=== PATIENT | male | born 1990 | race Caucasian/White ===

== ENCOUNTER 2018-07-09 16:20 | Inpatient (IN) | payer OTHER ==
[2018-07-09 18:03] VITALS: BMI 27.3
--- NOTE | 2018-07-09 21:18 | HP ---
Admission ROS [facility] Chief Complaint: SEEKING REHAB SERVICES Allergies/Adverse Reactions: Allergies Allergy/AdvReac Type Severity Reaction Status Date / Time No Known Allergies Allergy Verified 07/09/18 21:13 History of Present Illness: 27 Y.O. MAN AN EXTENSIVE HISTORY OF PCP, COCAINE AND KETAMINE DEPENDENCE IS HERE SEEKING HIS FIRST ADMISSION TO REHAB. HE DOES NOT HAVE A SIGNIFICANT PERIOD OF ILLICIT DRUG ABSTINENCE. Exam Limitations: No Limitations - Ebola screening Have you traveled outside of the country in the last 21 days: No Have you been sick,other than usual withdrawal symptoms: No - Review of Systems Constitutional: Changes in sleep EENT: reports: Nose Congestion Respiratory: reports: Shortness of Breath Cardiac: reports: No Symptoms Reported GI: reports: No Symptoms Reported : reports: No Symptoms Reported Musculoskeletal: reports: Back Pain Integumentary: reports: No Symptoms Reported Neuro: reports: No Symptoms reported Endocrine: reports: No Symptoms Reported Hematology: reports: No Symptoms Reported Psychiatric: reports: Orientated x3 Other Systems: Reviewed and Negative Patient History - Patient Medical History Hx Anemia: No Hx Asthma: No Hx Chronic Obstructive Pulmonary Disease (COPD): No Hx Cancer: No Hx Cardiac Disorders: No Hx Congestive Heart Failure: No Hx Hypertension: No Hx Hypercholesterolemia: No Hx Pacemaker: No HX Cerebrovascular Accident: No Hx Seizures: No Hx Dementia: No Hx Diabetes: No Hx Gastrointestinal Disorders: No Hx Liver Disease: No Hx Genitourinary Disorders: No Hx Sexually Transmitted Disorders: No Hx Renal Disease (ESRD): No Hx Thyroid Disease: No Hx Human Immunodeficiency Virus (HIV): No Hx Hepatitis C: No Hx Depression: No Hx Suicide Attempt: No Hx Bipolar Disorder: No Hx Schizophrenia: No - Patient Surgical History Past Surgical History: Yes Hx Appendectomy: Yes (2002) Anesthesia Reaction: No - PPD History Previous Implant?: Yes Documented Results: Negative w/o proof PPD to be Administered?: Yes - Reproductive History Patient is a Female of Child Bearing Age (11 -55 yrs old): No - Smoking Cessation Smoking history: Never smoked Initiated information on smoking cessation: No - Substance & Tx. History Hx Alcohol Use: No Hx Substance Use: Yes Substance Use Type: Cocaine Hx Substance Use Treatment: No - Substances Abused Cocaine Route: Inhalation Frequency: 3-6 times per week Amount used: $200 WEEK Age of first use: 17 Date of Last Use: 08/28/18 PCP Route: Smoking Frequency: 3-6 times per week Amount used: $150 WEEK Age of first use: 23 Date of Last Use: 07/07/18 Ketamine Route: Inhalation Frequency: 3-6 times per week Amount used: $340 Age of first use: 23 Date of Last Use: 07/08/18 Family Disease History - Family Disease History Family Disease History: Respiratory: Mother (ASTHMA ) Admission Physical Exam [facility] - Vital Signs Vital Signs: Vital Signs - 24 hr 07/09/18 17:55 Pulse Rate 73 Respiratory 16 Rate Blood Pressure 111/59 - Physical General Appearance: Yes: No Apparent Distress, Nourished, Appropriately Dressed HEENTM: Yes: Within Normal Limits, Hearing grossly Normal, Normal ENT Inspection , Normocephalic Respiratory: Yes: Chest Non-Tender Neck: Yes: No masses,lesions,Nodules, Trachea in good position Breast: Yes: Breast Exam Deferred Cardiology: Yes: Regular Rhythm, Regular Rate Abdominal: Yes: Normal Bowel Sounds, Non Tender, Flat Genitourinary: Yes: Other (NO COMPLAINTS REPORT) Back: Yes: Normal Inspection Musculoskeletal: Yes: full range of Motion, Gait Steady, Pelvis Stable Extremities: Yes: Normal Capillary Refill, Normal Inspection, Normal Range of Motion Neurological: Yes: Fully Oriented, Alert, Normal Mood/Affect, Normal Response Integumentary: Yes: Normal Color, Dry, Warm Lymphatic: Yes: Within Normal Limits - Diagnostic (1) Cocaine dependence Current Visit: Yes Status: Chronic (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 (3) Ketamine dependence Current Visit: Yes Status: Chronic Cleared for Admission [facility] - Detox or Rehab [facility] Level of Care: Observation Bed Detox Regimen/Protocol: Not Applicable Claeared for Rehab Admission: Yes [facility] Breath Alcohol Content Breath Alcohol Content: 0 Urine Drug Screen - Results Drug Screen Negative: No Urine Drug Screen Results: THC-Marijuana, JEAN-PIERRE-Cocaine, PCP-Phencyclidine Inpatient Rehab Admission - Initial Determination Are CD services needed?: Yes Free of communicable disease: Yes Not in need of hospitalization: Yes - Rehab Admission Criteria Previous failed treatment: Yes Poor recovery environment: Yes Comorbidities: Yes Lacks judgement: Yes Patient is meeting Inpatient Rehab admission criteria:: Yes
[2018-07-09] MEDS ORDERED: LOPERAMIDE HCL 2 MG CAPSULE PO PRN (21:20)
[2018-07-09] MEDS ORDERED: MAG HYDROX/AL HYDROX/SIMETH 30 ML UNIT-DOSE CUP PO PRN (21:20)
[2018-07-09] MEDS ORDERED: P-EPHED 60MG/TRIPROLIDI 2.5MG TABLET PO PRN (21:20)
[2018-07-09] MEDS ORDERED: MENTHOL/PHENOL 1 EACH UD MM PRN (21:20)
[2018-07-09] MEDS ORDERED: hydrOXYzine PAMOATE 50 MG CAPSULE (FP) PO PRN (21:20)
[2018-07-09] MEDS ORDERED: guaiFENesin/D-METHORPHAN HB 10 ML UNIT-DOSE CUPS PO PRN (21:20)
[2018-07-09] MEDS ORDERED: MAGNESIUM CITRATE 300 ML BOTTLE PO PRN (21:20)
[2018-07-09] MEDS ORDERED: IBUPROFEN 400 MG TABLET (FP) PO PRN (21:20)
[2018-07-09] MEDS ORDERED: ACETAMINOPHEN 325 MG TABLET (FP) PO PRN (21:20)
[2018-07-09] MEDS ORDERED: MAGNESIUM HYDROX 2400MG/30ML ORAL SUSPENSION 30 ML CUP PO PRN (21:20)
[2018-07-09] MEDS ORDERED: diphenhydrAMINE HCL 25 MG CAPSULE (FP) PO PRN (21:21)
[2018-07-09] MEDS ORDERED: TUBERCULIN PPD 5 TU/0.1ML VIAL ID ONE (23:27)
[2018-07-09] MEDS: THIAMINE HCL 100 MG TABLET (FP) PO SCH (23:29)
[2018-07-10 02:08] LABS: URINE APPEARANCE TURBID; URINE BILIRUBIN NEGATIVE (<2.0 mg/dL); URINE COLOR AMBER; URINE GLUCOSE (UA) NEGATIVE (NEGATIVE); URINE KETONE NEGATIVE (NEGATIVE); URINE LEUK ESTERASE NEGATIVE (NEGATIVE); URINE NITRITE NEGATIVE (NEGATIVE); URINE PROTEIN NEGATIVE (NEGATIVE); URINE UROBILINOGEN NEGATIVE mg/dL (0.2-1.0)
--- NOTE | 2018-07-10 10:28 | EKG ---
Test Reason : Blood Pressure : / mmHG Vent. Rate : 070 BPM Atrial Rate : 070 BPM P-R Int : 130 ms QRS Dur : 100 ms QT Int : 392 ms P-R-T Axes : 038 076 044 degrees QTc Int : 423 ms NORMAL SINUS RHYTHM NORMAL ECG NO PREVIOUS ECGS AVAILABLE Confirmed by MAU JONES, ROBB ([id number]) on 07/10/2018 10:28:15 AM Referred By: Confirmed By:ROBB LEÓN MD
[2018-07-10] MEDS: PRENATAL VITAMINS W/ FOLIC ACID TABLET (FP) PO SCH (10:41)
[2018-07-10 10:55] LABS: HEMATOCRIT 40.3 % (35.4-49); MCH 28.2 pg (25.7-33.7); MCHC 32.3 g/dl (32.0-35.9); MEAN CELL VOLUME 87.5 fl (80-96); MEAN PLT VOLUME 8.8 fl (7.5-11.1); PLATELET COUNT 260 K/MM3 (134-434); RBC 4.61 M/mm3 (4.00-5.60); RDW 13.7 % (11.9-15.9); WHITE BLOOD COUNT 7.3 K/mm3 (4.0-10.0)
[2018-07-10 11:07] LABS: ALBUMIN 3.3 g/dl (3.4-5.0); ANION GAP 7 MMOL/L (8-16); BLOOD UREA NITROGEN 10 mg/dL (7-18); CALCIUM 8.5 mg/dL (8.5-10.1); CHLORIDE 111 mmol/L (98-107); CO2 26 mmol/L (21-32); GLUCOSE,RANDOM 90 mg/dL (74-106); SODIUM 144 mmol/L (136-145)
[2018-07-10 11:12] LABS: ALK PHOS 95 U/L (45-117); CREATININE 0.9 mg/dL (0.7-1.3); SGOT/AST 10 U/L (15-37); SGPT/ALT 10 U/L (12-78); TOT PROT 6.5 g/dl (6.4-8.2)
[2018-07-10 11:25] LABS: BILIRUBIN,TOTAL < 0.1 mg/dL (0.2-1.0)
--- NOTE | 2018-07-10 13:26 | HP ---
Psychiatrist Admission - Data Date of interview: 07/10/18 Admission source: [facility] Identifying data: THIS IS THE FIRST ADMISSION TO [facility] FOR THIS THIS 27 YEARS OLD H SINGLE NO CHILDREN,RESIDES WITH [facility],UNEMPLOYED, SUPPORTED BY [employer]. Medical History: Unremarkable Psychiatric History: denies Physical/Sexual Abuse/Trauma History: denies Vital Signs: Vital Signs - 24 hr 07/09/18 07/10/18 07/10/18 17:55 00:30 03:30 Temperature Pulse Rate 73 Respiratory 16 18 18 Rate Blood Pressure 111/59 07/10/18 06:57 Temperature 98.2 F Pulse Rate 68 Respiratory 18 Rate Blood Pressure 103/72 Allergies/Adverse Reactions: Allergies Allergy/AdvReac Type Severity Reaction Status Date / Time No Known Allergies Allergy Verified 07/09/18 21:13 Date of last physical exam: 07/09/18 Concur with the findings of this exam: Yes - Substance Abuse/Tx History Hx Alcohol Use: Yes (drinking since 16 yo,beer 16 oz daily) Hx Substance Use: Yes (PCP since 23 yo,10 bags daily,Ketamine since 23 yo, marijuana,cocaine since ) Substance Use Type: Cocaine, Marijuana Hx Substance Use Treatment: Yes (this is his first inpatient [facility] treatment ) Mental Status Exam - Mental Status Exam Alert and Oriented to: Time, Place, Person Cognitive Function: Grossly Intact Patient Appearance: Unkempt Mood: Sad Affect: Mood Congruent Patient Behavior: Appropriate, Cooperative Speech Pattern: Clear Voice Loudness: Normal Thought Process: Goal Oriented Thought Disorder: Not Present Hallucinations: Denies Suicidal Ideation: Denies Homicidal Ideation: Denies Insight/Judgement: Fair Sleep: Fair Appetite: Fair Muscle strength/Tone: Normal Gait/Station: Normal Psychiatric Findings - Problem List ([place] 1, 2,3) (1) Cocaine dependence Current Visit: Yes Status: Chronic (2) Ketamine dependence Current Visit: Yes Status: Chronic (3) PCP (phencyclidine) abuse Current Visit: Yes Status: Chronic - Initial Treatment Plan Initial Treatment Plan: Will monitor porgress.
[2018-07-10] MEDS: MELATONIN 5 MG TABLETS PO PRN (21:27)
[2018-07-10] MEDS: THIAMINE HCL 100 MG TABLET (FP) PO SCH (21:27)
[2018-07-11] MEDS: PRENATAL VITAMINS W/ FOLIC ACID TABLET (FP) PO SCH (09:21)
[2018-07-11] MEDS: MELATONIN 5 MG TABLETS PO PRN (21:36)
[2018-07-11] MEDS: THIAMINE HCL 100 MG TABLET (FP) PO SCH (21:36)
[2018-07-12] MEDS: PRENATAL VITAMINS W/ FOLIC ACID TABLET (FP) PO SCH (10:39)
[2018-07-12] MEDS: THIAMINE HCL 100 MG TABLET (FP) PO SCH (21:11)
[2018-07-12] MEDS: MELATONIN 5 MG TABLETS PO PRN (21:11)
[2018-07-13] MEDS: PRENATAL VITAMINS W/ FOLIC ACID TABLET (FP) PO SCH (10:19)
[2018-07-13] MEDS: THIAMINE HCL 100 MG TABLET (FP) PO SCH (21:36)
[2018-07-13] MEDS: MELATONIN 5 MG TABLETS PO PRN (21:36)
[2018-07-14] MEDS: PRENATAL VITAMINS W/ FOLIC ACID TABLET (FP) PO SCH (10:38)
--- NOTE | 2018-07-14 13:02 | PN ---
Psychiatric Progress Note Vital Signs: Vital Signs Period Temp Pulse Resp BP Sys/Joaquin Pulse Ox Last 24 Hr 98.0 F 63 16-18 109/71 Date of Session: 07/14/18 Chief Complaint:: " I canot sleep at night." HPI: Follow-up requested to address insomnia.Case of a 27 y/o male admitted to [address] for ketamine,cocaine and phencyclidine dependence. ROS: Unemarkable. Current Medications: Active Medications Generic Name Dose Route Start Last Admin Trade Name Freq PRN Reason Stop Dose Admin Acetaminophen 650 mg 07/09/18 21:20 Tylenol - PO Q4H PRN FEVER Al Hydroxide/Mg Hydroxide 30 ml 07/09/18 21:20 Mylanta Oral Suspension - PO Q6H PRN DYSPEPSIA Diphenhydramine HCl 50 mg 07/09/18 21:21 Benadryl - PO HS PRN INSOMNIA Eucalyptus/Menthol/Phenol/Sorbitol 1 each 07/09/18 21:20 Cepastat Lozenge - MM Q4H PRN SORE THROAT Guaifenesin 10 ml 07/09/18 21:20 Robitussin Dm - PO Q6H PRN COUGH Hydroxyzine Pamoate 50 mg 07/09/18 21:20 Vistaril - PO Q4H PRN AGITATION Ibuprofen 400 mg 07/09/18 21:20 Motrin - PO Q6H PRN Pain level 4-6 Loperamide HCl 4 mg 07/09/18 21:20 Imodium - PO Q6H PRN DIARRHEA Magnesium Citrate 300 ml 07/09/18 21:20 Citroma - PO Q48H PRN CONSTIPATION Magnesium Hydroxide 30 ml 07/09/18 21:20 Milk Of Magnesia - PO DAILY PRN CONSTIPATION Melatonin 5 mg 07/09/18 22:00 07/13/18 21:36 Melatonin PO 5 mg HS PRN Administration INSOMNIA Multivit/Folic Acid/Iron 1 tab 07/10/18 10:00 07/14/18 10:38 Vitamins (Sjr) - PO Not Given DAILY VERONICA Pseudoephedrine/Triprolidine 1 combo 07/09/18 21:20 Actifed - PO TID PRN NASAL CONGESTION Thiamine HCl 100 mg 07/09/18 22:00 07/13/18 21:36 Vitamin B1 - PO 100 mg HS VERONICA Administration Medication(s) Change(s): Seroquel 100 mg po hs.Added to the regimen at the request of the patient.Mr Tommy reports a personal history of favorable response to quetiapine (used to take 300 mg/hs as per own account).Side effects/ benefits discussed with the patient.Made aware, in particular, of potential for metabolic syndrome,abnormal involuntary movements,orthostasis and oversedation. Current Side Effect: No Lab tests ordered: No Lab tests reviewed: Yes Provider note:: Chart reviewed.Previous psychiatric notes are appreciated.Met with patient.Calm,relaxed and well-related.Hospital remains benign except for complaint of insomnia.No other issues.Patient is informed of the therapeutic virtues of sleep hygiene,the benefits of sobriety and, at his request, seroquel 100 mg is ordered at bedtime.Mental status is stable. Total face to face time:: 25 Mental Status Exam - Mental Status Exam Alert and Oriented to: Time, Place, Person Cognitive Function: Good Patient Appearance: Well Groomed Mood: Anxious (mildly ), Hopeful Affect: Normal Range Patient Behavior: Cooperative Speech Pattern: Clear Voice Loudness: Normal Thought Process: Intact, Goal Oriented Thought Disorder: Not Present Hallucinations: Denies Homicidal Ideation: Denies Insight/Judgement: Fair Sleep: Poorly, Difficulty falling asleep Appetite: Good Muscle strength/Tone: Normal Gait/Station: Normal Psychiatric Treatment Plan - Problem List (1) Cannabis dependence Current Visit: Yes (2) Cocaine dependence Current Visit: Yes (3) Ketamine dependence Current Visit: Yes (4) PCP (phencyclidine) abuse Current Visit: Yes (5) Insomnia Current Visit: Yes
[2018-07-14] MEDS: THIAMINE HCL 100 MG TABLET (FP) PO SCH (21:24)
[2018-07-14] MEDS ORDERED: QUEtiapine FUMARATE 100 MG TABLET (FP) PO SCH (22:00)
[2018-07-15 06:45] VITALS: BP 100/69; PULSE 83; TEMP 97.3
[2018-07-15] MEDS: PRENATAL VITAMINS W/ FOLIC ACID TABLET (FP) PO SCH (10:16)
== END 2018-07-15 11:30 | disposition left against medical advice (07) | DRG 770 ==
LOC: YASAS 16:20 → Y3W 20:23
PROVIDERS: ADMIT Psychiatry & Neurology Psychiatry; ATTEND Psychiatry & Neurology Psychiatry
PROC: HZ42ZZZ Group Counseling for Substance Abuse Treatment, Cognitive-Behavioral (ICD-10-PCS; principal; 2018-07-09)
DX: F14.20 Cocaine dependence, uncomplicated (principal); F13.20 Sedative, hypnotic or anxiolytic dependence, uncomplicated; F12.20 Cannabis dependence, uncomplicated; F16.10 Hallucinogen abuse, uncomplicated; G47.00 Insomnia, unspecified
CPT/HCPCS: 36415; 80053; 81003; 85027; 86593; 86803; 93005; 93010